=== PATIENT | male | born 1980 | race American Indian/Alaskan Native ===

== ENCOUNTER 2017-12-04 22:57 | Emergency (ER) | payer OTHER ==
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
--- NOTE | 2017-12-05 03:49 | XRay Report ---
FINAL REPORT EXAM: XR SPINE LUMBOSACRAL 2-3V HISTORY: BACK INJURY TECHNIQUE: AP and lateral views of the lumbar spine were obtained. FINDINGS: The disc heights and alignment appear normal. There is no evidence of fracture. The SI joints appear normal. The soft tissues well maintained. IMPRESSION: Normal exam.
[2017-12-05 05:40] VITALS: BP 121/79
== END 2017-12-05 05:41 | disposition home or self-care (01) ==
LOC: ED 22:57
DX: M54.5 Low back pain (principal); V49.49XA Driver injured in collision with other motor vehicles in traffic accident, initial encounter; Y93.89 Activity, other specified; Y92.89 Other specified places as the place of occurrence of the external cause; Y99.8 Other external cause status
CPT/HCPCS: 72100; 99283

== ENCOUNTER 2018-02-28 17:13 | Emergency (ER) | payer OTHER ==
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
[2018-03-01 00:07] VITALS: BP 129/94
[2018-03-01] MEDS ORDERED: FLEXERIL PO ONE (00:47)
[2018-03-01] MEDS ORDERED: NORCO 5/325 PO ONE (00:47)
== END 2018-03-01 02:02 | disposition home or self-care (01) ==
LOC: ED 17:13
DX: M54.5 Low back pain (principal); M62.830 Muscle spasm of back; M25.50 Pain in unspecified joint; M25.531 Pain in right wrist
CPT/HCPCS: 99282